=== PATIENT | female | born 1965 | race Two or more races ===

== ENCOUNTER 2022-09-05 10:03 | Outpatient (CLI) | payer BC ==
[2022-09-05 10:21] LABS: BASOPHILS # (AUTO) 0.1 10^3/uL (0.0-0.1); BASOPHILS % (AUTO) 1.2 %; EOSINOPHILS # (AUTO) 0.2 10^3/uL (0.0-0.7); EOSINOPHILS % (AUTO) 3.5 %; HCT - HEMATOCRIT 42.1 % (37.0-47.0); HGB - HEMOGLOBIN 13.3 g/dL (12.0-16.0); LYMPHOCYTES # (AUTO) 2.2 10^3/uL (1.5-3.5); LYMPHOCYTES % (AUTO) 44.9 %; MEAN CORPUSCULAR HEMOGLOBIN 28.5 pg (27.0-31.0); MEAN CORPUSCULAR HGB CONC 31.6 g/dL (32.0-36.0); MEAN CORPUSCULAR VOLUME 90.3 fL (81.0-99.0); MONOCYTES # (AUTO) 0.3 10^3/uL (0.0-1.0); MONOCYTES % (AUTO) 6.9 %; NEUTROPHILS # (AUTO) 2.1 10^3/uL (1.5-6.6); NEUTROPHILS % (AUTO) 43.3 %; PLT - PLATELET COUNT 289 10^3/uL (130-450); RED BLOOD COUNT 4.66 10^6/uL (4.20-5.40); WHITE BLOOD COUNT 4.9 x10^3/uL (4.8-10.8)
[2022-09-05 10:31] LABS: ALBUMIN 4.4 g/dL (3.2-5.5); ALBUMIN/GLOBULIN RATIO 1.5 (1.0-2.2); BILIRUBIN,TOTAL 0.7 mg/dL (0.2-1.0); CALCIUM 8.9 mg/dL (8.5-10.3); CREATININE 0.6 mg/dL (0.4-1.0); POTASSIUM 3.6 mmol/L (3.5-5.0); TOTAL PROTEIN 7.3 g/dL (6.7-8.2)
== END 2022-09-05 10:04 | disposition home or self-care (01) ==
LOC: LAB 10:03
PROVIDERS: ATTEND Obstetrics & Gynecology
DX: Z01.818 Encounter for other preprocedural examination (principal); D06.9 Carcinoma in situ of cervix, unspecified
CPT/HCPCS: 36415; 80053; 85025; 86850; 86900; 86901; 93005

== ENCOUNTER 2022-09-06 11:54 | Day surgery (SDC) | payer BC ==
[~2022-09-06 11:54] MED LIST: miSOPROStoL 200 MCG TABLET ONE
[2022-09-06] MEDS ORDERED: LACTATED RINGERS 1,000 ML IV ONE (11:56)
--- NOTE | 2022-09-06 12:37 | ANESTHESIA ---
Pre-Anesthesia VS, & Labs - Diagnosis cervical dysplagia - Procedure colpocopy Vital Signs: Temp Pulse Resp BP Pulse Ox O2 Flow Rate 36.3 C L 106 H 16 171/103 H 100 09/06/22 12:03 09/06/22 12:03 09/06/22 12:03 09/06/22 12:03 09/06/22 12:03 Height: 5 ft 2 in Weight (kg): 56 kg Body Mass Index: 22.6 BMI Classification: Normal - NPO >8 hours - Is Patient ?: No Home Medications and Allergies Home Medications: Ambulatory Orders Cholecalciferol [Vitamin D3] 25 mcg PO DAILY 08/29/22 Melatonin/Pyridoxine [Melatonin 5 mg Tablet] 1 each PO QPM PRN 08/29/22 Multivitamin 1 each PO DAILY 08/29/22 Anastrozole 1 mg PO DAILY 07/04/22 Calcium Carbonate [Calcium] 600 mg PO DAILY 07/04/22 Losartan [Cozaar] 25 mg PO DAILY 07/04/22 Rosuvastatin Calcium [Crestor] 20 mg PO DAILY 07/04/22 Vitamin E (Dl,Tocopheryl Acet) [Vitamin E] 180 mg PO DAILY 07/04/22 Zinc Gluconate [Zinc] 50 mg PO DAILY 07/04/22 Cholecalciferol [Vitamin D3] 25 mcg PO DAILY 08/29/22 Melatonin/Pyridoxine [Melatonin 5 mg Tablet] 1 each PO QPM PRN 08/29/22 Multivitamin 1 each PO DAILY 08/29/22 Allergies/Adverse Reactions: Allergies Allergy/AdvReac Type Severity Reaction Status Date / Time No Known Drug Allergies Allergy Verified 07/04/22 15:47 Anes History & Medical History - Anesthetic History Anesthesia Complications: reports: Post-Operative Nausea/Vomiting - Medical History Cardiovascular: reports: Hypertension, High cholesterol Pulmonary: reports: None Gastrointestinal: reports: None Urinary: reports: None Musculoskeletal: reports: None Endocrine/Autoimmune: reports: Other History of Cancer?: Yes - Surgical History Gynecologic: reports: Mastectomy Exam General: Alert, Oriented x3, Cooperative Dental: WNL Mouth Opening: Greater than 4 Fingerbreadths Neck Mobility: Normal Mallampati classification: II Thyromental Distance: greater than 6 cm Respiratory: Lungs clear Cardiovascular: Regular rate, Normal S1, Normal S2 Plan Anesthesia Type: General Consent for Procedure(s) Verified and Reviewed: Yes Code Status: Attempt Resuscitation ASA classification: 2-Mild systemic disease Is this case an emergency?: No
[2022-09-06] MEDS ORDERED: ePHEDrine 50 MG/ML VIAL IVP PRN (12:47)
[2022-09-06] MEDS ORDERED: MORPHINE 2 MG/ML CARPUJECT IVP PRN (12:47)
[2022-09-06] MEDS ORDERED: NALOXONE 0.4 MG/ML VIAL IVP PRN (12:47)
[2022-09-06] MEDS ORDERED: ONDANSETRON 4 MG/2 ML VIAL IVP PRN ×2 (12:47→15:44)
[2022-09-06] MEDS ORDERED: METOCLOPRAMIDE 10 MG/2 ML VIAL IVP PRN (12:47)
[2022-09-06] MEDS ORDERED: HYDROmorphone 0.5 MG/0.5 ML SYRINGE IVP PRN (12:47)
[2022-09-06] MEDS ORDERED: fentaNYL 100 MCG/2 ML VIAL IVP PRN (12:47)
[2022-09-06] MEDS ORDERED: ATROPINE ABBOJECT 1 MG/10 ML SYRINGE IVP PRN (12:47)
[2022-09-06] MEDS ORDERED: SCOPOLAMINE PATCH TOP ONE (12:54)
[2022-09-06] MEDS ORDERED: LACTATED RINGERS 1,000 ML IV SCH (13:00)
[2022-09-06] MEDS ORDERED: MIDAZOLAM 2 MG/2 ML VIAL ONE (14:15)
[2022-09-06] MEDS ORDERED: fentaNYL 100 MCG/2 ML VIAL ONE (14:16)
[2022-09-06] MEDS ORDERED: PROPOFOL 200 MG/20 ML VIAL IVP ONE (14:16)
[2022-09-06] MEDS ORDERED: SILVER NITRATE APPLICATOR TOP ONE ×2 (14:52→15:07)
[2022-09-06] MEDS ORDERED: LACTATED RINGERS 200 ML IV ONE (15:01)
--- NOTE | 2022-09-06 15:36 | ANESTHESIA POST OP EVALUATION ---
Anesthesia Post Eval - Post Anesthesia Eval Vitals: Last Vital Signs Temp 36.4 C L 09/06/22 15:12 Pulse 72 09/06/22 15:12 Resp 16 09/06/22 15:12 BP 142/100 H 09/06/22 15:12 Pulse Ox 99 09/06/22 15:12 O2 Flow Rate CV Function Including HR & BP: Stable Pain Control: Satisfactory Nausea & Vomiting: Negative Mental Status: Baseline Respiratory Status: Airway Patent Hydration Status: Satisfactory Anesthesia Complications: None
[2022-09-06] MEDS ORDERED: ONDANSETRON 4 MG/2 ML VIAL ONE (15:49)
[2022-09-06 16:11] VITALS: BP 144/79
--- NOTE | 2022-09-06 17:23 | OPERATIVE REPORT ---
Operative Report - General Procedure Date: 09/06/22 Planned Procedure: Colposcopy Pre-Op Diagnosis: History of MAKEDA 3, Pap smear NILM/HPV positive, Unsatisfactory colposcopy Procedure Performed: Colposcopy, biopsy 1 o'clock, endocervical curettage Post Op Diagnosis: History of MAKEDA 3, Pap smear NILM/HPV positive, Unsatisfactory colposcopy - Procedure Note Primary Surgeon: Nimo Cox DO Anesthesia Provider: Jaiime Crawley CRNA Pathology: Cervical biopsy 1 O'clock Endocervical curettings Estimated Blood Loss (mL): 20 Indications: History of MAKEDA 3, Pap smear NILM/HPV positive, Unsatisfactory colposcopy, Cervical scarring from LEEP, Cervical/vaginal atrophy. Colposcopy attempted in office but unsatisfactory/unable to complete due to above. Findings: Cervical scarring from LEEP, Cervical/vaginal atrophy, No visible acetowhite changes but limited due to scarring Complications: None - Other Other Information/Narrative: Patient transferred to OR. Anesthesia obtained without difficulty. Placed in dorsal lithotomy position. Speculum placed in vagina and cervix identified. Acetic acid applied. No acetowhite changes noted, visualized with colposcopy. Tenaculum placed anterior lip of cervix. Unable to pass cervical curette or any dilator through cervix. 11 blade used to superficially incise external os to release adhesions. Endocervix curette now was able to pass through to cervix. Endocervical curettings obtained. Tischler biopsy forceps used to obtain 1 o'clock cervical biopsy. Silver nitrate used for hemostasis. Tenaculum and speculum removed. Tolerated procedure well. Counts correct x2. Transferred to PACU in stable condition.
== END 2022-09-06 11:55 | disposition home or self-care (01) ==
LOC: SDS 11:54
PROVIDERS: ATTEND Obstetrics & Gynecology
PROC: 0UBC8ZX Excision of Cervix, Via Natural or Artificial Opening Endoscopic, Diagnostic (ICD-10-PCS; principal; 2022-09-06 13:30)
DX: N72 Inflammatory disease of cervix uteri (principal); I10 Essential (primary) hypertension; Z78.0 Asymptomatic menopausal state; Z86.001 Personal history of in-situ neoplasm of cervix uteri
CPT/HCPCS: 57454; A9270; J3490; J7120

== ENCOUNTER 2022-11-07 09:27 | Outpatient (CLI) | payer BC ==
--- NOTE | 2022-11-22 10:13 | Mammography Report ---
UNILATERAL LEFT DIGITAL SCREENING MAMMOGRAM 3D/2D: 11/07/2022 CLINICAL: Routine screening. Personal history of right breast cancer. No prior exams were available for comparison. The left breast is heterogeneously dense, which may obscure small masses (category c / 51-75% glandul ar tissue). There is a 0.8 cm oval equal density focal asymmetry in the left breast at 10 o'clock middle depth. No other significant masses or calcifications are seen in the breast. IMPRESSION: INCOMPLETE: NEEDS ADDITIONAL IMAGING EVALUATION The 0.8 cm oval equal density focal asymmetry in the left breast resembles a cyst or a lymph node and is indeterminate. Additional views with possible ultrasound are recommended. This exam was interpreted at Station ID: [id number]. NOTE: For mammograms, a report in lay terms will be sent to the patient. Approximately 15% of breast malignancies will not be visualized mammographically. In the management of a palpable breast mass, a negative mammogram must not discourage biopsy of a clinically suspicious lesion. Electronically Signed By: Duke henriquez/andrew:11/21/2022 19:53:36 ACR BI-RADS Category 0: Incomplete 3340F PARENCHYMAL PATTERN: (D) - The breast(s) demonstrate(s) heterogeneously dense fibroglandular parorlando kern. BI-RADS CATEGORY: (0) - 0 Mammo and [place] [id number] Immediate follow-up LATERALITY: (L)
== END 2022-11-07 09:28 | disposition home or self-care (01) ==
LOC: DI.N 09:27
PROVIDERS: ATTEND Obstetrics & Gynecology
DX: Z12.31 Encounter for screening mammogram for malignant neoplasm of breast (principal); Z85.3 Personal history of malignant neoplasm of breast; R92.8 Other abnormal and inconclusive findings on diagnostic imaging of breast

== ENCOUNTER 2023-06-12 10:34 | Outpatient (CLI) | payer BC ==
--- NOTE | 2023-06-13 09:32 | Ultrasound Report ---
LIMITED ULTRASOUND OF LEFT BREAST: 06/12/2023 CLINICAL: Patient returns today to evaluate a focal asymmetry in the left breast. Comparison is made to exams dated: 06/12/2023 mammogram and 11/07/2022 mammogram - [facility]. Color flow ultrasound of the left breast 9 o'clock region was performed. Pizarro scale images of the r eal-time examination were reviewed. There is a 0.6 cm x 0.6 cm x 0.2 cm oval mass with a microlobulated margin in the left breast at 9 o' clock middle depth 3 cm from the nipple. This oval mass is surrounded by fibrous tissue, hypoechoic with no posterior acoustic shadowing or enhancement. This correlates with mammography findings. Col or flow imaging demonstrates that there is no vascularity present. 4 cm from the nipple also at 9:00, there is a 0.8 cm lymph node. IMPRESSION: PROBABLY BENIGN The 0.6 cm oval mass in the left breast has a differential diagnosis of fibroadenoma, focal scarring, a complicated cyst, or lymph node, and is probably benign. A follow-up left mammogram and an ultrasound in 6 months is recommended to demonstrate stability. Findings and recommendations were conveyed to the patient at time of exam. This exam was interpreted at Station ID: [id number]. Electronically Signed By: Anabella chavira/:06/12/2023 12:00:31 Ultrasound BI-RADS: 3 Probably benign BI-RADS CATEGORY: (3) - 3 Mammo and [place] [id number] 6 month follow-up LATERALITY: (L)
--- NOTE | 2023-06-13 09:32 | Mammography Report ---
UNILATERAL LEFT DIGITAL DIAGNOSTIC MAMMOGRAM 3D/2D WITH LATEROMEDIAL SPOT COMPRESSION: 06/12/2023 CLINICAL: Patient returns today to evaluate a focal asymmetry in the left breast. Comparison is made to exam dated: 11/07/2022 mammogram - [facility]. The left breast is heterogeneously dense, which may obscure small masses (category c / 51-75% glandul ar tissue). There is a 5 mm oval equal density focal asymmetry with a spiculated margin in the left breast at 9 o 'clock middle depth. This is seen in additional views. No other significant masses or calcifications are seen in the breast. IMPRESSION: INCOMPLETE: NEEDS ADDITIONAL IMAGING EVALUATION The 5 mm oval equal density focal asymmetry in the left breast is indeterminate. An ultrasound is re commended. This was performed immediately following this exam. This exam was interpreted at Station ID: [id number]. NOTE: For mammograms, a report in lay terms will be sent to the patient. Approximately 15% of breast malignancies will not be visualized mammographically. In the management of a palpable breast mass, a negative mammogram must not discourage biopsy of a clinically suspicious lesion. Electronically Signed By: Anabella chavira/:06/12/2023 11:37:22 ACR BI-RADS Category 0: Incomplete 3340F PARENCHYMAL PATTERN: (D) - The breast(s) demonstrate(s) heterogeneously dense fibroglandular parorlando kern. BI-RADS CATEGORY: (0) - 0 Ultrasound [id number] Immediate follow-up LATERALITY: (B)
== END 2023-06-12 10:35 | disposition home or self-care (01) ==
LOC: DI 10:34
PROVIDERS: ATTEND Obstetrics & Gynecology
DX: R92.8 Other abnormal and inconclusive findings on diagnostic imaging of breast (principal); R92.332 Mammographic heterogeneous density, left breast